=== PATIENT | female | born 1930 | race Caucasian/White ===

== ENCOUNTER 2017-03-03 15:10 | Emergency (ER) | payer OTHER ==
[~2017-03-03] VITALS: Ht 152.4 cm; Wt 58.9 kg
[~2017-03-03 15:10] MED LIST: CALCIUM 600 MG1 EACH PO; CITALOPRAM HBR20 MG PO; DONEPEZIL HCL10 MG PO; LORTAB 5-325 M1 EACH PO; NAMENDA10 MG PO; SIMVASTATIN40 MG PO
[2017-03-03 15:23] VITALS: BP 120/52
[2017-03-03 15:54] LABS: HEMATOCRIT 41.1 % (36.0-46.0); MCH 29.1 PG (29.0-34.0); MCHC 32.6 G/DL (30.0-36.0); MCV 89.3 FL (83-99); MEAN PLAT.VOLUME 10.1 uM^3 (9.5-12.4); PLATELET COUNT 232 K/uL (156-360); RBC DIS.WIDTH-CV 13.2 % (11.8-14.6); RBC DIS.WIDTH-SD 43.2 % (39-53); WHITE BLOOD COUNT 5.9 K/uL (4.1-10.2)
[2017-03-03 16:03] LABS: CHLORIDE 104 mEq/L (99-109); POTASSIUM 4.1 mEq/L (3.7-5.4); SODIUM 140 mEq/L (136-147)
[2017-03-03 16:05] LABS: GLUCOSE 110 mg/dL (70-99)
[2017-03-03 16:06] LABS: ANION GAP 13 MEQ/L (2-14)
[2017-03-03 16:09] LABS: GFR ESTIMATE (CALCULATED) 45 mL/min/
[2017-03-03 16:10] LABS: UREA NITROGEN (BUN) 24 mg/dL (9-23)
[2017-03-03 16:16] LABS: TROP-I INTERPRETATION NEGATIVE; TROPONIN-I < 0.01 ng/mL (0.0-0.30)
[2017-03-03 17:57] LABS: ADD MIUA? YES; BILIRUBIN NEGATIVE; BLOOD NEGATIVE; COLOR YELLOW ((YELLOW)); GLUCOSE (STRIP) NEGATIVE; KETONES NEGATIVE; LEUKOCYTES TRACE; NITRITE NEGATIVE; PROTEIN (STRIP) NEGATIVE; SPECIFIC GRAVITY 1.023 (1.000-1.030)
[2017-03-03 18:21] LABS: BACTERIA RARE /HPF; CALCIUM OXALATE CRYSTALS RARE /HPF; CASTS NONE SEEN /LPF; CRYSTALS PRESENT; EPITHELIAL CELLS 2+ /HPF; MUCUS 1+ /LPF; RED BLOOD CELLS NONE SEEN /HPF (0-5); WHITE BLOOD CELLS 0-5 /HPF (0-5)
== END 2017-03-03 18:50 | disposition home or self-care (01) ==
LOC: EME 15:10
PROVIDERS: Nurse Practitioner Family
DX: S06.0X0A Concussion without loss of consciousness, initial encounter (principal); S00.03XA Contusion of scalp, initial encounter; W01.0XXA Fall on same level from slipping, tripping and stumbling without subsequent striking against object, initial encounter; Y93.01 Activity, walking, marching and hiking; G30.9 Alzheimer's disease, unspecified; F02.80 Dementia in other diseases classified elsewhere, unspecified severity, without behavioral disturbance, psychotic disturbance, mood disturbance, and anxiety; E78.5 Hyperlipidemia, unspecified; Z87.891 Personal history of nicotine dependence
CPT/HCPCS: 70450; 80048; 81003; 84484; 85027; 93005; 99281; 99284

== ENCOUNTER 2017-12-17 09:23 | Emergency (ER) | payer OTHER, MEDICARE ==
[~2017-12-17] VITALS: Ht 149.9 cm; Wt 50.1 kg
[2017-12-17 10:12] LABS: BASOPHIL (%) 0.5 % (0-1); EOSINOPHIL (%) 0.2 % (0-5); HEMATOCRIT 38.6 % (36.0-46.0); HEMOGLOBIN 12.9 G/DL (11.9-15.5); IMMATURE GRANULOCYTE (%) 0.5 % (0.0-0.7); LYMPHOCYTE (%) 20.3 % (15-42); LYMPHOCYTE COUNT 1.2 K/uL (1.0-2.8); MCH 30.2 PG (29.0-34.0); MCHC 33.4 G/DL (30.0-36.0); MCV 90.4 FL (83-99); MONOCYTE COUNT 0.5 K/uL (0-0.8); NEUTROPHIL (%) 69.5 % (45-76); PLATELET COUNT 199 K/uL (156-360); RBC DIS.WIDTH-CV 13.2 % (11.8-14.6); RBC DIS.WIDTH-SD 43.5 % (39-53); RED BLOOD COUNT 4.27 M/uL (3.80-5.20); WHITE BLOOD COUNT 5.8 K/uL (4.1-10.2)
[2017-12-17 10:20] LABS: CHLORIDE 104 mEq/L (99-109); POTASSIUM 4.8 mEq/L (3.7-5.4); SODIUM 140 mEq/L (136-147)
[2017-12-17 10:22] LABS: GLUCOSE 95 mg/dL (70-99)
[2017-12-17 10:26] LABS: CREATININE 1.2 mg/dL (0.6-1.3); GFR ESTIMATE (CALCULATED) 45 mL/min/
[2017-12-17 10:27] LABS: UREA NITROGEN (BUN) 18 mg/dL (9-23)
[2017-12-17 10:52] LABS: APPEARANCE CLEAR ((CLEAR)); BILIRUBIN NEGATIVE; BLOOD NEGATIVE; COLOR YELLOW ((YELLOW)); GLUCOSE (STRIP) NEGATIVE; KETONES NEGATIVE; LEUKOCYTES NEGATIVE; NITRITE NEGATIVE; PROTEIN (STRIP) NEGATIVE; SPECIFIC GRAVITY 1.017 (1.000-1.030); UROBILINOGEN 0.2 MG/DL (0.2-1.0)
[2017-12-17 11:33] VITALS: BP 114/42
== END 2017-12-17 11:34 | disposition home or self-care (01) ==
LOC: EME 09:23
PROVIDERS: Emergency Medicine
DX: G40.909 Epilepsy, unspecified, not intractable, without status epilepticus (principal); G30.9 Alzheimer's disease, unspecified; F02.80 Dementia in other diseases classified elsewhere, unspecified severity, without behavioral disturbance, psychotic disturbance, mood disturbance, and anxiety; E78.5 Hyperlipidemia, unspecified; Z87.891 Personal history of nicotine dependence
CPT/HCPCS: 80048; 81003; 85025; 99281; 99283